=== PATIENT | male | born 1935 | race Caucasian/White ===

== ENCOUNTER 2016-10-30 14:05 | Emergency (ER) | payer MEDICARE, OTHER | END 2016-10-30 16:49 | disposition home or self-care (01) | LOC: FER 14:05 | DX: M84.422A Pathological fracture, left humerus, initial encounter for fracture (principal); I10 Essential (primary) hypertension; Z90.49 Acquired absence of other specified parts of digestive tract; Z85.118 Personal history of other malignant neoplasm of bronchus and lung; Z79.899 Other long term (current) drug therapy | CPT/HCPCS: 73030; 73060 ==